=== PATIENT | female | born 1990 | race African-American/Black ===

== ENCOUNTER 2017-01-21 16:13 | Emergency (ER) ==
[2017-01-21 16:54] LABS: URINE CULTURE NEEDED? NO; URINE MICRO REVIEW NEEDED? NO; URINE SOURCE CLEAN CATCH
[2017-01-21 17:00] LABS: BILIRUBIN URINE NEGATIVE (NEGATIVE); BLOOD URINE NEGATIVE (NEGATIVE); COLOR YELLOW; GLUCOSE URINE NEGATIVE (NEGATIVE); LEUKOCYTES URINE NEGATIVE (NEGATIVE); NITRITE URINE NEGATIVE (NEGATIVE); PROTEIN URINE 30 mg/dL (NEGATIVE); TURBIDITY URINE CLEAR (CLEAR); UROBILINOGEN URINE 2 mg/dL (NORMAL)
[2017-01-21 17:01] LABS: UR EPITHELIAL CELLS <10 /HPF (<10); URINE BACTERIA NEGATIVE /HPF; URINE RBC <10 /HPF (<10); URINE WBC <10 /HPF (<10)
--- NOTE | 2017-01-21 17:28 | PROVIDER DOCUMENTATION ---
HPI-Female /OB/Breast - General Chief Complaint: Female Stated Complaint: PELVIC PAIN Time Seen by Provider: 01/21/17 17:02 Allergies/Adverse Reactions: Patient Allergies Allergy/AdvReac Type Severity Reaction Status Date / Time No Known Allergies Allergy Verified 01/21/17 18:09 Home Medications: Home Medication List Medication Instructions Recorded Confirmed Last Taken Type Clotrimazole 1% Cream [Lotrimin 1% 1 applicatn TOP BID #1 tube 01/21/17 Unknown Rx Cream] Metronidazole [Flagyl] 500 mg PO TID #21 tablet 01/21/17 Unknown Rx - History of Present Illness-Female /OB Nature of Presenting Problem: 26 yof that complains of pelvic pressure, dysuria, burning, itching, and lower back pain. Denies hematuria, N/V/D or any other symptoms at this time. Does patient report she is ?: No Location of complaint: reports: suprapubic, groin, vaginal, urethral. denies: unknown, RLQ, LLQ, periumbilical, right flank, left flank, generalized flank, other Quality of Pain: reports: cramping. denies: none, aching, burning, dull, fullness, indigestion, pressure, sharp, stabbing, tearing, throbbing, tightness , other Severity in ED: reports: moderate Onset/Duration: reports: 2 days ago. denies: unsure, abrupt, gradual, just prior to arrival, 1/2 hour ago, 1 hour ago, 1-3 hours ago, 4-6 hours ago, 24 hours ago, 3 days ago, 4 days ago, 5 days ago, 6 days ago, 1 week ago, last week , this morning, this afternoon, this evening, last night, other Timing: reports: still present, getting worse. denies: improving, gone now, resolved prior to arrival, intermittent, constant, changing over time, other Context/Activities at Onset: reports: none. denies: light activity, moderate activity, vigorous activity, recent emotional stress, recent physical stress, recent trauma history, possible bad food, cold exposure, eating, out of country travel, rest, sleep, sexual activity, other Vaginal Symptoms: reports: itching, pain with intercourse. denies: no symptoms , abnormal bleeding, discharge, foul odor, passing clots/tissue, other Vaginal Bleeding Amount: None Urinary Symptoms: reports: dysuria, frequency, polyuria, urgency, low back pain . denies: no symptoms, anuria, dribbling, hematuria, hesitancy, incontinent, nocturia, retention, other Related Symptoms: reports: no symptoms. denies: vaginal fluid leakage , uterine contractions, pelvic pain, vaginal bleeding, abdominal pain, other Leakage of Fluid: none Sexual intercourse history: reports: Single Partner. denies: Not Active, Greater Than 2 Months Ago, Less Than 2 Months Ago, Multiple Partners, Other Contraception: denies: none, condoms, BCP's, IUD, patch, depo, hormonal, implant , other (Hysterectomy) Modifying Factors: improves with: nothing. worse with: analgesics, antacids, breathing, cold/heat therapy, coughing, defecating, eating, exercise, immobilization, lying down, massage, movement, other medication, palpation, rest , urinating, vomiting, other Review of Systems - Adult - REVIEW OF SYSTEMS - ADULT Constitutional: reports: see HPI. denies: no symptoms reported, chills, fever, fatique, night sweats, weight gain, weight loss, other Eyes: reports: no symptoms reported. denies: see HPI, discharge, dry eyes, decreased vision, blurred vision, double vision, eye pain, redness, other Ears, Nose, Mouth & Throat: reports: no symptoms reported. denies: see HPI, ear discharge, ear pain, hearing loss, tinnitus, epistaxis, sinus problem, nose pain, loose teeth, mouth/dental pain, mouth swelling, hoarseness, throat pain, throat swelling, other Cardiovascular: reports: no symptoms reported. denies: see HPI, chest pain, edema, heart murmur, irregular heart rate, orthopnea, palpitations, poor circulation, PND, syncope, other Respiratory: reports: no symptoms reported. denies: see HPI, chronic cough, cough, dyspnea on exertion, excessive sputum production, hemoptysis, pleurisy, shortness of breath, wheezing, other Gastrointestinal: reports: see HPI, abdominal pain, nausea. denies: no symptoms reported, hematemesis, constipation, diarrhea, difficulty swallowing, frequent heartburn, poor appetite, rectal bleeding, vomiting, other Genitourinary: reports: see HPI, dysuria, frequency, flank pain, urgency. denies: no symptoms reported, discharge, frequent UTI's, hematuria, hesitency, incontinence, urinary retention, other Musculoskeletal: reports: see HPI, back pain. denies: no symptoms reported, bone pain, frequent leg cramps, joint pain, joint swelling, muscle aches, muscle weakness, neck pain, other Integumentary: reports: no symptoms reported. denies: see HPI, hives, hair loss , itching, mole changes, nail changes, rash, skin sores/ulcer, skin thickening, other Neurological: reports: no symptoms reported. denies: see HPI, ataxia, dizziness /vertigo, headache/migraines, loss of balance, numbness, paresthesia, seizure, slurred speech, syncope, tremors, other Psychiatric: reports: no symptoms reported All Other Systems: Reviewed and Negative Past History - Adult - PAST MEDICAL HISTORY-ADULT Review of Records: reports: Old Records Reviewed, Nursing Assessment Review, Medications Reviewed, Social history reviewed & non-contributory. Major Childhood Illnesses: reports: denies history Cardiovascular: reports: denies history Respiratory: reports: asthma Gastrointestinal: reports: denies history Obstetrical/Gynecological: reports: other (pelvic pain.) Genitourinary: reports: denies history Musculoskeletal: reports: denies history Neurological: reports: denies history Psychiatric: reports: anxiety Endocrine/Immune: reports: denies history Other Conditions: reports: denies history - PRIOR SURGERIES/PROCEDURES Surgical/Procedure History: reports: hysterectomy - IMMUNIZATION STATUS Childhood Immunizations: See Nurse Assessment Flu Vaccine: See Nurse Assessment - FAMILY HISTORY Family History: reviewed, not pertinent Physical Exam-General - PHYSICAL EXAM-ADULT Initial Vital Signs Reviewed: Yes - CONSTITUTIONAL General Appearance: appears well, alert, no apparent distress - EYES Eyes: PERRL/EOMI, pink conjunctivae, fundi clear, no AV nicking - HEAD, EARS, NOSE, MOUTH & THROAT HENMT: normocephalic/atraumatic, moist mucous membranes, normal ENT inspection, TMs normal, pharynx normal. negative: angioedema, dental decay, hearing deficit , pharyngeal erythema, tonsillar exudate, TM abnormal, TM obscurred by cerumen, frontal tenderness, maxillary tenderness, other - NECK Neck: non-tender, full range of motion, supple, normal inspection. negative: Brudzinski's sign, carotid bruit, C-spine tenderness, limited range of motion, lymphadenopathy, meningismus, trachial deviation, tender lateral, tender midline , thyromegaly, other - RESPIRATORY Respiratory: chest non-tender, lungs clear, normal breath sounds, no pleuratic chest pain, no respiratory distress, no accessory muscle use. negative: respiratory distress, decreased breath sounds, accessory muscle use, crackles, rales, rhonchi, stridor, wheezing, dull on percussion, prolonged expiration, pain on inspiration, plerual rub, retractions, splinting, decreased rate, increased rate, crepitus, other - CARDIOVASCULAR Cardiovascular: normal peripheral pulses, regular rate, rhythm, no edema, no gallop, no JVD, no murmur. negative: JVD, bradycardia, tachycardia, diastolic murmur, systolic murmur, gallop/S3, gallop/S4, extra beats, friction rub, irregularly irregular, PMI displaced laterally, other - CHEST (BREASTS) Chest/Breast: deferred - GASTROINTESTINAL (ABDOMEN) Abdominal Exam: normal bowel sounds, soft, no organomegaly, no pulsatile mass, tenderness (Suprapubic). negative: non tender, abdominal bruit, abnormal bowel sounds, distended, guarding, rigid, rebound, hernia, mass, hepatomegaly, spleenomegaly, McBurney's point tenderness, Daniels's sign, obturator sign, prominent aortic pulsations, psoas, Rovsing's sign, other - GENITOURINARY Male Genitalia: negative: deferred, normal genitalia, normal prostate, no hernia , erythema, circumcised, uncircumcised, epididymal tenderness, herpes-like lesion, hernia mass, hydrocele, inguinal lymphadenopathy, scrotal swelling, urethral discharge, inguinal tenderness, testicular tenderness, other Rectal Exam: deferred. negative: normal exam, normal rectal tone, black stool, blood streaked stool, decreased tone, hemorrhoids, mass, prostate enlarged/ nodule, tenderness, other Hemoccult Exam: deferred - LYMPHATIC Lymphatic: no adenopathy. negative: axilla node tender, cervical node tenderness, inguinal node tender, enlargement, striations, streaking, other - MUSCULOSKELETAL Back Exam: normal inspection, no vertebral tenderness, CVA tenderness. negative : no CVA tenderness, decreased range of motion, ecchymosis, kyphosis, lordosis, muscle spasm, scoliosis, swelling, vertebral tenderness, other Extremity: normal range of motion, non-tender, normal gait, normal inspection, no pedal edema, no calf tenderness, normal capillary refill. negative: pelvis stable, abnormal NV exam, calf tenderness, deformity, erythema, inflammation, joint effusion, pulse deficit, pedal edema, slow capillary refill, swelling, tenderness, other Progress - PLAN OF CARE/RESULTS Progress/Plan/Lab Results: Laboratory Tests 01/21/17 16:32 Urine Source CLEAN CATCH Urine Color YELLOW Urine Turbidity CLEAR Urine pH 6.0 Ur Specific Bradner 1.030 Urine Protein 30 A Ur Glucose (Stick) NEGATIVE Ur Ketones (Stick) TRACE A Urine Blood NEGATIVE Urine Nitrite NEGATIVE Urine Bilirubin NEGATIVE Urobilinogen Dipstick 2 A Urine Leukocytes NEGATIVE Urine WBC (Auto) <10 Urine RBC (Auto) <10 U Epithel Cells (Auto) <10 Urine Bacteria (Auto) NEGATIVE Orders Category Date Time Status ABDOMEN/PELVIS W/O CONTRAST [CT] Stat Exams 01/21/17 17:05 Ordered KUB ABDOMEN [RAD] Stat Exams 01/21/17 17:05 Draft URINALYSIS W/POSS RFLX CULT [URINALYSIS] Stat Lab 01/21/17 16:32 Completed Vital Signs Temp Pulse Resp BP Pulse Ox 01/21/17 16:19 97.6 F 61 18 124/66 98 No Known Allergies Allergy (Verified 01/21/17 18:09) No Home Medications 01/21/17 I&O 01/20/17 01/21/17 01/22/17 06:59 06:59 06:59 Output Total 60 Balance -60 Laboratory 01/21/17 16:32 Urine Source CLEAN CATCH Urine Color YELLOW Urine Turbidity CLEAR Urine pH 6.0 Ur Specific Bradner 1.030 Urine Protein 30 A Ur Glucose (Stick) NEGATIVE Ur Ketones (Stick) TRACE A Urine Blood NEGATIVE Urine Nitrite NEGATIVE Urine Bilirubin NEGATIVE Urobilinogen Dipstick 2 A Urine Leukocytes NEGATIVE Urine WBC (Auto) <10 Urine RBC (Auto) <10 U Epithel Cells (Auto) <10 Urine Bacteria (Auto) NEGATIVE - XRAY 1 XRAY Study: Abdomen Impression: Abnormal XRAY Interpretation: Mild Constipation according to Radiologist - CT/MRI 1 CT Study: Abdomen Impression: Normal Comparison with other Films: no changes CT Results: Read by Dr. Leon. Departure - Departure Time of Disposition Order: 19:07 DIAGNOSIS: BV (bacterial vaginosis) Constipation Qualifiers: Constipation type: slow transit constipation Qualified Code(s): K59.01 - Slow transit constipation Abdominal pain Qualifiers: Abdominal location: unspecified location Qualified Code(s): R10.9 - Unspecified abdominal pain Disposition: HOME 01 Certified Medical Emergency: Emergent Condition: Stable Additional Instructions: Follow up as needed with [employer]INE [employer] and vagainal itching for continued pain. ED Follow Up Instructions: You have been treated by a care provider in the Emergency Department. These instructions are being provided to you so you can have an understanding of how to care for yourself upon discharge. Upon discharge from the Emergency Department, you are responsible for making arrangements for follow-up care by a physician of your choice. Take all prescribed medications as directed. Return to the Emergency Department immediately for any new or worsening symptoms. You may call the Physician Referral phone number at [phone] to obtain a list of Physicians who are taking new patients. Prescriptions: Metronidazole [Flagyl] 500 mg PO TID #21 tablet Clotrimazole 1% Cream [Lotrimin 1% Cream] 1 applicatn TOP BID #1 tube Referrals: J Luis Buchanan MD [Primary Care Provider] - Attestation - Physician/ CALIN Attestation Patient care was provided by Advanced Practice Provider:: Yes Advanced Practice Provider:: Howie Huang Advanced Practice Provider documentation review:: The Mid-level provider documentation, treatment plan and medical decision making was reviewed by the physician who agrees with all treatment and medical decision making by the MLP.
--- NOTE | 2017-01-21 18:09 | Diag Imaging Result Document ---
PROCEDURE NAME: KUB ABDOMEN - 01/21/2017 KUB: FINDINGS: There is stool throughout the colon without evidence of dilatation. There is no evidence of gastric or small bowel dilatation. There are phleboliths in the left pelvis. There is no evidence of organomegaly or mass. There are no previous studies available for comparison. IMPRESSION: Mild constipation.
[2017-01-21 19:32] VITALS: BP 135/66
--- NOTE | 2017-01-22 10:05 | Diag Imaging Result Document ---
PROCEDURE NAME: ABDOMEN/PELVIS W/O CONTRAST - 01/21/2017 CT UROGRAM WITHOUT CONTRAST: FINDINGS: The visualized portion of the chest is unremarkable. There is a fairly large amount of retained food in the stomach. There are granulomata in the spleen. There is no evidence of nephrolithiasis or hydronephrosis. The gallbladder is contracted. There is a moderate amount of stool in the colon. The small bowel is not distended. There is no evidence of ureterolithiasis. The appendix is normal in appearance. There is some free fluid in the cul-de-sac. There is a 2.6 cm left ovarian cyst. The regional skeleton is intact. IMPRESSION: Nonspecific free pelvic fluid. Left ovarian cyst. No evidence of stones or obstruction.
== END 2017-01-21 19:31 | disposition home or self-care (01) ==
LOC: ED 16:13
DX: N76.0 Acute vaginitis (principal); K59.01 Slow transit constipation; R10.30 Lower abdominal pain, unspecified; R30.0 Dysuria; L29.9 Pruritus, unspecified; M54.5 Low back pain; N94.10 Unspecified dyspareunia; R35.0 Frequency of micturition; R35.8 Other polyuria; R39.15 Urgency of urination; R11.0 Nausea
CPT/HCPCS: 74000; 74176; 81001